=== PATIENT | male | born 1965 | race Caucasian/White ===

== ENCOUNTER 2017-06-02 05:09 | Emergency (ER) | payer OTHER ==
[~2017-06-02] VITALS: Ht 177.8 cm; Wt 89.8 kg
--- NOTE | 2017-06-02 05:15 | NUR ---
PT BIBRA 89 C/O RAPID [employer]LY[employer] MD=[id number], DENIES CP OR SOB CONVERTED TO NSR DURING ASSESSMENT. PT AOX4 RR EVEN AND UNLABORED. NO SOB NOTED. NAD NOTED. NO NVD AT THIS TIME. PT NOT DIAPHORETIC. PT GOWNED NAD PLACED ON MONITOR. DR. COLE AT BEDSIDE FOR EVAL.
--- NOTE | 2017-06-02 06:09 | NUR ---
Patient discharged to home in stable condition. Written and verbal after care instructions given. Patient verbalizes understanding of instruction. ambulatory with a steady gait.
[2017-06-02 06:11] VITALS: BP 128/79
== END 2017-06-02 06:11 | disposition home or self-care (01) ==
LOC: ER 05:10
DX: R00.2 Palpitations (principal); I48.91 Unspecified atrial fibrillation
CPT/HCPCS: 93005; 99283; A4606; Z7610